=== PATIENT | male | born 1955 | race Caucasian/White ===

== ENCOUNTER 2019-08-05 07:59 | Inpatient (IN) ==
[2019-08-05] MEDS ORDERED: ZOFRAN IV ONE (08:29)
[2019-08-05] MEDS ORDERED: SODIUM CHLORIDE 0.9% INJ ONE (08:29)
[2019-08-05] MEDS ORDERED: PROTONIX IV ONE (08:29)
--- NOTE | 2019-08-05 08:35 | PROVIDER DOCUMENTATION ---
HPI-Abdominal Pain/GI Problem - General Stated Complaint: POSS GI BLEED Time Seen by Provider: 08/05/19 08:21 Source: patient, old records Allergies/Adverse Reactions: Patient Allergies Allergy/AdvReac Type Severity Reaction Status Date / Time No Known Allergies Allergy Verified 08/05/19 08:39 Home Medications: Home Medication List Medication Instructions Recorded Confirmed Last Taken Type Atenolol 50 mg PO DAILY 08/05/19 08/05/19 Unknown History Clonazepam [Klonopin] 1 mg PO DIRECTED 08/05/19 08/05/19 Unknown History Lisinopril 10 mg PO DAILY 08/05/19 08/05/19 Unknown History Mirtazapine [Remeron] 30 mg PO DAILY 08/05/19 08/05/19 Unknown History Prazosin [Minipress] 4 mg PO QHS 08/05/19 08/05/19 Unknown History - History of Present Illness-ABD Nature of Presenting Problems: pt presents w/ melena becoming maroon h'chezia for 2 days. states had febrile illness over the recent weekend, took Tylenol and ASA, otherwise denies NSAIDs. known to have fattly liver s/p rhys'x ([facility]). drinks 5-6 beers q day. states vomited "2 teaspoons" of BRB 10 yrs ago, no MD hudson, resolved spontaneously. no prior hx EGD. had normal colonoscopy last year. cc: abd cramping at present, denies CP/dyspnea/syncope. PMHx HBP on 3 Rx, and Clonazepam for "nerves," hs Remeron. Review of Systems - Adult - REVIEW OF SYSTEMS - ADULT Constitutional: reports: fever Eyes: reports: no symptoms reported Ears, Nose, Mouth & Throat: reports: no symptoms reported Cardiovascular: reports: no symptoms reported Respiratory: reports: no symptoms reported Gastrointestinal: reports: see HPI, abdominal pain, rectal bleeding Genitourinary: reports: no symptoms reported Musculoskeletal: reports: no symptoms reported Integumentary: reports: no symptoms reported Neurological: reports: no symptoms reported Psychiatric: reports: no symptoms reported Endocrine: reports: no symptoms reported Hematologic/Lymphatic: reports: no symptoms reported Allergic/Immunologic: reports: no symptoms reported All Other Systems: Reviewed and Negative Past History - Adult - PAST MEDICAL HISTORY-ADULT Review of Records: reports: Old Records Reviewed Cardiovascular: reports: HTN Gastrointestinal: reports: GI bleed. denies: ulcer Physical Exam-General - PHYSICAL EXAM-ADULT Initial Vital Signs Reviewed: Yes - CONSTITUTIONAL General Appearance: alert, no apparent distress. negative: obese, lethargic, slow to respond - EYES Eyes: pink conjunctivae. negative: scleral icterus - HEAD, EARS, NOSE, MOUTH & THROAT HENMT: normocephalic/atraumatic, moist mucous membranes - NECK Neck: full range of motion, supple - RESPIRATORY Respiratory: normal breath sounds - CARDIOVASCULAR Cardiovascular: normal peripheral pulses, regular rate, rhythm - GASTROINTESTINAL (ABDOMEN) Abdominal Exam: soft, no organomegaly. negative: abdominal bruit, guarding, rigid, rebound - GENITOURINARY Male Genitalia: deferred Rectal Exam: deferred - LYMPHATIC Lymphatic: no adenopathy - MUSCULOSKELETAL Back Exam: no CVA tenderness Extremity: normal range of motion Peripheral Pulses: radial (R): 2+, radial (L): 2+ - SKIN Integumentary: normal color, normal turgor, warm/dry. 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 II-XII nml as tested, grossly normal - PSYCHIATRIC Psych/Mental Status: normal mood/affect, normal thought content Progress - PLAN OF CARE/RESULTS Progress/Plan/Lab Results: Orders Category Date Time Status CHEST-1 VIEW [RAD] Stat Exams 08/05/19 08:28 Ordered ALCOHOL BLOOD Stat Lab 08/05/19 08:28 Uncollected BLOOD CULTURE [BLDCUL] Stat Lab 08/05/19 08:28 Uncollected CBC WITH ELECTRONIC DIFF [HEME] Stat Lab 08/05/19 08:28 Uncollected COMPREHENSIVE METABOLIC PANEL [CHEM] Stat Lab 08/05/19 08:28 Uncollected INFLUENZA SCREEN A/B Stat Lab 08/05/19 08:28 Uncollected MAGNESIUM [CHEM] Stat Lab 08/05/19 08:28 Uncollected OCCULT BLOOD NON-FECES Stat Lab 08/05/19 08:28 Uncollected PROTIME WITH INR [COAG] Stat Lab 08/05/19 08:28 Uncollected PTT [COAG] Stat Lab 08/05/19 08:28 Uncollected TYPE & SCREEN [BBK] Stat Lab 08/05/19 08:28 Uncollected 0.9% Sodium Chloride Inj [Ns] 1,000 ml Med 08/05/19 08:30 Ordered IV 125 mls/hr Ondansetron [Zofran] Med 08/05/19 08:29 Once 4 mg IV NOW ONE Pantoprazole [Protonix] Med 08/05/19 08:29 Once 40 mg IV NOW ONE Sodium Chloride 0.9% Med 08/05/19 08:29 Once 10 ml INJ NOW ONE GI Bleed (possible) Stat Oth 08/05/19 08:27 Ordered Result Diagrams: 08/05/19 08:29 08/05/19 08:29 - REASSESSMENT Reassessment #1 Time Reassessed: 10:55 Status: unchanged (Hb and hemodynamics stable. BUN elev likely due to GIH. will discuss with hospitalist) - CONSULTS/PCP/HOSPITALIST Notification Consult Disposition: Admit Departure - Departure Date of Disposition Decision: 08/05/19 Time of Disposition Decision: 11:14 DIAGNOSIS: Upper gastrointestinal bleed Disposition: ADMITTED INPATIENT 09 Certified Medical Emergency: Emergent Condition: Serious Referrals and Follow-Ups: None,PCP [Primary Care Provider] - - Critical Care Note This patient required my direct & personal management of CC.: No Attestation - Physician/ KIYA Attestation The physician spent face to face time with patient:: Yes Advanced Practice Provider documentation review:: Supervising physician onsite and consulted in the evaluation and care of this patient. The physician did have a face to face encounter with the patient.
[2019-08-05] MEDS: NS 1,000 ML IV SCH ×2 (09:01→16:44)
--- NOTE | 2019-08-05 09:10 | Diag Imaging Result Doc PS360 ---
EXAM: CHEST-1 VIEW HISTORY: fever, cough TECHNIQUE: Single view COMPARISON: None. FINDINGS: The lungs are well expanded. The heart is not enlarged. The vessels are not distended. There are no infiltrates. No effusion identified. IMPRESSION: No pneumonia Electronically signed by Abdifatah Nice 08/05/2019 9:08 AM
[2019-08-05 09:20] LABS: BASO# 0.02 X1000 (0.0-0.2); BASO% 0.2 % (0.0-0.8); HEMATOCRIT 42.3 % (42.0-52.0); HEMOGLOBIN 13.9 g/dL (14.0-18.0); IMM GRAN# 0.03 X1000 (0.0-0.04); IMM GRAN% 0.4 % (0.0-0.5); LYMPH# 1.45 X1000 (1.2-3.4); LYMPH% 17.3 % (20.5-51.1); MCH 29.9 PG (27-31); MCHC 32.9 g/dL (33-37); MONO# 0.55 X1000 (0.11-0.59); MONO% 6.6 % (1.7-9.3); MPV 12.6 FL (7.4-10.4); NEUT# 6.33 X1000 (1.4-6.5); NEUT% 75.5 % (42.2-75.2); PLT 58 X1000 (130-400); RBC 4.65 XMIL (4.7-6.1); RDW 15.3 % (11.5-14.5); WBC 8.38 X1000 (4.8-10.8)
[2019-08-05 09:29] LABS: AGAP 13; ALB/GLOB RATIO 0.9; ALBUMIN 3.3 g/dL (3.5-5.0); ALKALINE PHOSPHATASE 82 U/L (32-122); BUN 39 mg/dL (8-22); CALCIUM 8.6 mg/dL (8.8-10.2); CHLORIDE 101 mmol/L (98-107); COSMO 287; CREATININE 1.1 mg/dL (0.7-1.2); ESTIMATED GFR > 60; GLUCOSE 103 mg/dL (70-104); GOT 112 U/L (10-34); GPT 52 U/L (10-44); MAGNESIUM 1.8 mg/dL (1.5-2.7); POTASSIUM 3.2 mmol/L (3.5-5.1); SODIUM 139 mmol/L (136-145); TCO2 25 mmol/L (25-35); TOTAL BILIRUBIN 0.58 mg/dL (0.20-1.00); TOTAL PROTEIN 7.1 g/dL (6.3-8.3)
[2019-08-05 09:30] LABS: INR 1.06; PROTIME 13.9 Seconds (11.0-16.0)
[2019-08-05 09:31] LABS: PTT 32.5 Seconds (22.3-41.8)
--- NOTE | 2019-08-05 11:34 | Diag Imaging Result Doc PS360 ---
EXAM: ABDOMEN FLAT/UPRIGHT INDICATION: GI bleed TECHNIQUE: 2 views COMPARISON: None. FINDINGS: There are nonspecific bowel gas and stool patterns. There is no obstructive bowel pattern. There is no evidence of large volume free abdominal gas. IMPRESSION: Nonspecific abdomen. Electronically signed by Santana Powell 08/05/2019 11:32 AM
[2019-08-05] MEDS ORDERED: ZOFRAN IV PRN (12:57)
[2019-08-05] MEDS ORDERED: POTASSIUM CHLORIDE 40 MEQ/SWI 40 MEQ/100 ML IVPB IV ONE (13:07)
[2019-08-05] MEDS: NICODERM PATCH TD SCH (14:02)
[2019-08-05 14:36] LABS: HEMATOCRIT 39.5 % (42.0-52.0); HEMOGLOBIN 13.2 g/dL (14.0-18.0)
--- NOTE | 2019-08-05 14:47 | HISTORY AND PHYSICAL ---
PRIMARY CARE PHYSICIAN: Dr. Nathalia Araujo at the [facility] in [place]. CHIEF COMPLAINT: GI bleed. HISTORY OF PRESENT ILLNESS: Mr. Pineda is a 63-year-old, male with past medical history of hypertension, COPD, occasional hemorrhoids, general anxiety disorder and insomnia. The patient does present to the ER today with complaints of initial black-colored stools that eventually turned red in color for the past 2 days. The patient states that approximately 5 days ago the patient started having flu-like symptoms where he was having fever with chills. The patient started taking aspirin because he was told he could not take Tylenol because he has fatty liver disease. The patient has been taking aspirin daily. The patient has had a cough with fever and chills, dizziness. The patient has had some congestion with light green sputum production, some dyspnea. He has had nausea with vomiting. However, he has not vomited in the last 3 days. The patient does deny any weight change, vision change, neck pain, stiffness, excessive thirst, excessive urination, chest pain, palpitations, orthopnea, PND, hematocrit dysphagia, hemoptysis, constipation, dysuria, hematuria, muscle pain, syncope, or any other pertinent symptoms at this time. REVIEW OF SYSTEMS: A 10 point review of systems has been obtained. All are negative except what is stated above in HPI. PAST MEDICAL HISTORY: 1. Hypertension. 2. Chronic obstructive pulmonary disease. 3. Hemorrhoids. 4. General anxiety disorder. 5. Insomnia. 6. Hepatic steatosis. PAST SURGICAL HISTORY: 1. Left mandible surgery. 2. Multiple cysts removed as a child. 3. Inguinal hernia repair. 4. Artificial testicle implant at the age of 18. FAMILY HISTORY: Mother from ovarian cancer. Father from aortic aneurysm. SOCIAL HISTORY: Patient does live alone. He is retired. He states he smokes a half pack of cigarettes per day. He does drink 4 to 5 beers a day or 4 to 5 bourbon and Cokes a day. He does smoke occasional marijuana about once a month. ALLERGIES: No known drug allergies. HOME MEDICATIONS: 1. Clonazepam 1 mg p.o. as directed. 2. Remeron 330 mg p.o. daily. 3. Minipress 4 mg p.o. at bedtime. 4. Atenolol 50 mg p.o. daily. 5. Lisinopril 10 mg p.o. daily. PHYSICAL EXAMINATION: VITAL SIGNS: Temperature 97.9 degrees, pulse rate 76, respiratory rate 19, blood pressure 107/61, O2 saturation 97% on room air. GENERAL: This is a 63-year-old, male who is lying in the ER stretcher. He is well nourished and well developed. He is in no acute distress. HEENT: Atraumatic, normocephalic. Pupils equal, round, reactive to light. Mucous membranes are moist. NECK: Supple. No lymphadenopathy. Trachea is midline. No JVD. No thyromegaly. No bruits. CARDIOVASCULAR: Regular rate and rhythm. No murmurs, gallops, or rubs appreciated. RESPIRATORY: Lung sounds clear. Equal chest excursion. Respirations nonlabored. No accessory muscle usage. GI: Abdomen soft, nontender, nondistended. Bowel sounds present x4. : No suprapubic tenderness noted. The patient is voiding without difficulty. NEUROLOGIC: Patient is awake, alert, oriented, able to follow all commands appropriately. MUSCULOSKELETAL: Full distal strength noted. No abnormalities, no deformities. EXTREMITIES: No clubbing, no cyanosis, no edema. DP and PT pulses are present and palpable. SKIN: Warm, dry, intact. No rashes. No bruises. No diaphoresis. LABS AND DIAGNOSTICS: White blood cell count 8.38, hemoglobin 13.9, hematocrit 42.3, platelet count 58,000. PT is 13.9, INR is 1.06. Sodium 139, potassium 3.2, BUN is 39, creatinine 1.1, glucose is 103, calcium is 8.6, magnesium is 1.8, total bilirubin is 0.58, AST is 112, ALT is 52. Toxicology: Alcohol level is 0. Abdominal x-ray shows nonspecific abdomen. Chest x-ray shows no pneumonia. ASSESSMENT AND PLAN: 1. Gastrointestinal bleed. We are going to admit this patient to the medical floor. We will consult Gastroenterology. Dr. Morris is on-call. We will place this patient on bucket pusher. We will keep this patient NPO at this present time and await gastroenterology consultation. We appreciate their recommendations. I placed this patient on supplemental O2. We will repeat a hemoglobin and hematocrit q.6 hours. Provide this patient with IV fluid hydration. Provide this patient with Protonix 40 mg IV q.12 hours. By this patient anti medics of Zofran 4 mg IV q.4 hours. I will repeat labs in the morning. 2. Hypokalemia. I will replace his potassium with KCl rider 40 mEq and repeat potassium level in the morning. 3. Thrombocytopenia. The patient does state he has hepatic steatosis. We have consulted gastroenterology. 4. History of hypertension. The patient's blood pressure is stable at this time. We will resume blood pressure medications when needed. 5. General anxiety disorder. I have started this patient on Ativan 1 mg IV q.4 hours p.r.n. for withdrawals and agitation. 6. History of alcohol abuse. I have provided this patient with a daily banana bag and p.r.n. Ativan for possible withdrawals. 7. History of chronic obstructive pulmonary disease. I have placed this patient on DuoNeb q. 4 hours, supplemental O2. 8. Tobacco dependency. I provided this patient with cessation information and nicotine patch. Dictated by GAYATRI Meade for Mario Johnson MD cc: MD Nathalia Donohue
[2019-08-05] MEDS: M.V.I.-12 10 ML, FOLIC ACID 1 MG, MAGNESIUM SULFATE 1 GM, THIAMINE 100 MG in NS 1,000 ML IV SCH (14:55)
[2019-08-05] MEDS ORDERED: ROCEPHIN 1 GM in NS 50 ML IV ONE (15:10)
[2019-08-05] MEDS: DUONEB (A & A) INH SCH ×2 (15:20→21:21)
[2019-08-05] MEDS ORDERED: VALIUM IV ONE (16:38)
[2019-08-05] MEDS: ATIVAN IV PRN (16:43)
[2019-08-05] MEDS: POTASSIUM CHLORIDE 20 MEQ/SWI 20 MEQ/100 ML IVPB IV SCH ×2 (18:13→21:08)
--- NOTE | 2019-08-05 19:04 | HISTORY AND PHYSICAL ---
ADDENDUM: Mr. Pineda is a 63-year-old male who got admitted today because of dark stool. Mr. Pineda has longstanding alcohol use and abuse. He said he takes about 4 to 5 beers and also 3 to 4 shots of whiskey on a daily basis. He has been doing this since he was age 13. OBJECTIVE: Vital signs: Current vitals: Blood pressure is 106/71, pulse of 78, respirations are 18, temperature 98 degrees. Patient is saturating 95%. General: Mr. Pineda is a 63-year-old gentleman. He is in bed. He does not seem to be in any distress. HEENT: Mucosa is pink and moist. Neck: Supple. Chest: Clear to auscultation. No crepitations. No rhonchi. GI: Abdomen is soft. It is slightly distended, but nontender. Bowel sounds present. ROCKET SCIENTIST: Patient is awake, alert, oriented. He has residual tremors. He looks very anxious and fidgety in the bed. LABORATORY DATA: Has been reviewed. Hemoglobin repeat is 13.2. Coagulation panel is normal. Chemistry is also reviewed. Potassium is slightly low. Albumin is 3.3. ASSESSMENT: 1. Melenic stool, concerning for gastrointestinal bleed. The patient has been evaluated by GI. Pending esophagogastroduodenoscopy hopefully tomorrow. 2. Thrombocytopenia, most likely from alcohol use and abuse. 3. Alcohol use. Patient is currently showing active signs of withdrawal. We are going to give him 10 mg of intravenous Valium and use Ativan as needed. He is currently n.p.o. 4. Hypokalemia. Will be replaced. 5. Tobacco use and abuse. Patient has been counseled. In general, I think Mr. Pineda is a severe alcohol user, showing signs of active withdrawal. We are going to continue with the as needed Ativan. We will give him a long-acting benzodiazepine. He has been started on proton pump inhibitors and antibiotics, and will be pending further recommendations from GI. cc: Mario Johnson MD
--- NOTE | 2019-08-05 19:13 | GASTROENTEROLOGY CONSULTATION ---
DATE: 08/05/2019 REASON FOR CONSULTATION: Suspect upper GI bleed. HISTORY OF PRESENT ILLNESS: Mr. 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 The patient reports developing some upper respiratory symptoms including cough, congestion, subjective fever and some lower abdominal cramping. He has been taking some aspirin. He said he has taken about 8 full dose aspirin over the last 5 days for pain. He was tested for flu, apparently which was negative. He denies any a hematemesis. He does say he has some scant red blood in his stool as well. His last colonoscopy was normal at the [facility] about a year ago. No other NSAIDs. No weight loss. Some dizziness. No chest pain or shortness of breath at this time. He drinks around 5 to 6 beers daily. He has been drinking pretty much all his life. His last drink was about 2 days ago. He says that he was hospitalized several years ago with DTs. He is otherwise not on any blood thinners. REVIEW OF SYSTEMS: As per HPI, otherwise 12 point review of systems negative. PAST MEDICAL HISTORY: As per HPI. PAST SURGICAL HISTORY: He has had a left mandible surgery and cholecystectomy, inguinal hernia repair, artificial testicle implant. FAMILY HISTORY: No family history of GI malignancies. Mother of ovarian cancer. SOCIAL HISTORY: He smokes about 2 half to 3/4 of pack daily. He drinks he says about 5 to 6 beers per day, although he also drinks liquor as well apparently. He also smokes marijuana occasionally. HOME MEDICATIONS: Include clonazepam, Remeron, Minipress, atenolol, lisinopril. He is not on PPI. ALLERGIES: No known drug allergies. PHYSICAL EXAMINATION: Vital Signs: Temperature is 98 degrees, heart rate 52, blood pressure 106/71, O2 saturation 95% on room air. General: The patient is awake, alert, oriented, in no acute distress. He appears mildly tremulous. HEENT: Sclerae anicteric. Moist mucous membranes. Extraocular motor intact. Neck: Supple. No JVD or lymphadenopathy. Cardiac: Regular rate and rhythm. No murmurs, rubs, or gallops. Lungs: Clear to auscultation bilaterally. Abdomen: He has a small umbilical hernia. Surgical scars noted. Nondistended. Soft and nontender. Bowel sounds are present. Extremities: No clubbing, cyanosis, or edema. Neurologic: Cranial nerves 2- 12 grossly intact. No asterixis. LABS: White count of 8.3, hemoglobin 13.2, platelets of 58,000, INR of 1.06. Sodium 139, potassium 3.2, chloride of 101, bicarb 25, BUN 39, creatinine 1.1, glucose of 103. LFTs: T bilirubin of 0.58, AST of 112, ALT of 52, alkaline phosphatase 82, total protein 7.1, albumin of 3.3. Alcohol level is negative. IMAGING: Chest x-ray is unremarkable. KUB is unremarkable. ASSESSMENT AND PLAN: Mr. Dank Pineda is a 63-year-old alcoholic with probable decompensated alcohol cirrhosis, chronic obstructive pulmonary disease, who presents with the recent flu-like symptoms and melenic stools with some lower abdominal cramping. He has been taking some aspirin recently, which could be contributing to his upper gastrointestinal bleed. Labs are notable for a normal hemoglobin, thrombocytopenia and AST, ALT elevation pattern consistent with alcoholic liver disease. His coags are normal. It does not appear that he is having a brisk upper gastrointestinal bleed. He has not had an esophagogastroduodenoscopy in the past. His last colonoscopy was normal a year ago. He does report some history of delirium tremens in the past and appears mildly tremulous right now. I recommend that we continue him on proton pump inhibitor IV b.i.d. Start him on ceftriaxone 1 g every 24 hours for spontaneous bacterial peritonitis prophylaxis. Avoid any blood thinners. Clear liquid diet for now. NPO after midnight for diagnostic esophagogastroduodenoscopy tomorrow morning. I would watch closely for delirium tremens and keep him on CIWA. I have counseled the patient on alcohol cessation and avoidance of nonsteroidal anti-inflammatories. Other issues include tobacco abuse, anxiety disorder, hypertension, hypokalemia, probable volume depletion. He is on IV fluids with banana bag and folate and vitamin. # UGIB # Compensated ETOH cirrhosis # Thrombocytopenia # COPD # Acute blood loss anemia # Tobacco abuse # Upper respiratory infection Thank you for this consult. We will follow with you. Please call with any questions or concerns. [facility]
[2019-08-05 20:42] LABS: HEMOGLOBIN 12.3 g/dL (14.0-18.0)
[2019-08-05] MEDS: PROTONIX IV SCH (21:08)
[2019-08-05] MEDS ORDERED: VALIUM ONE (21:50)
[2019-08-06] MEDS: NS 1,000 ML IV SCH ×3 (02:14→15:17)
[2019-08-06 02:54] LABS: HEMATOCRIT 35.4 % (42.0-52.0); HEMOGLOBIN 11.7 g/dL (14.0-18.0)
[2019-08-06] MEDS: DUONEB (A & A) INH SCH ×4 (03:10→21:50)
[2019-08-06] MEDS ORDERED: DIPRIVAN 1% ONE (06:53)
[2019-08-06 07:44] LABS: HEMATOCRIT 33.7 % (42.0-52.0); HEMOGLOBIN 11.3 g/dL (14.0-18.0)
[2019-08-06 07:46] LABS: BASO# 0.01 X1000 (0.0-0.2); BASO% 0.2 % (0.0-0.8); HEMATOCRIT 33.8 % (42.0-52.0); LYMPH# 1.12 X1000 (1.2-3.4); LYMPH% 21.2 % (20.5-51.1); MCHC 32.5 g/dL (33-37); MCV 92.1 FL (81-99); MONO# 0.54 X1000 (0.11-0.59); MONO% 10.2 % (1.7-9.3); MPV 12.5 FL (7.4-10.4); NEUT# 3.61 X1000 (1.4-6.5); NEUT% 68.4 % (42.2-75.2); PLT 46 X1000 (130-400); RBC 3.67 XMIL (4.7-6.1); WBC 5.28 X1000 (4.8-10.8)
[2019-08-06 08:03] LABS: AGAP 12; ALB/GLOB RATIO 0.9; ALBUMIN 2.7 g/dL (3.5-5.0); ALKALINE PHOSPHATASE 61 U/L (32-122); BUN 22 mg/dL (8-22); CALCIUM 7.4 mg/dL (8.8-10.2); CHLORIDE 111 mmol/L (98-107); COSMO 286; CREATININE 0.7 mg/dL (0.7-1.2); ESTIMATED GFR > 60; GLUCOSE 99 mg/dL (70-104); GOT 86 U/L (10-34); GPT 36 U/L (10-44); POTASSIUM 3.3 mmol/L (3.5-5.1); SODIUM 142 mmol/L (136-145); TCO2 19 mmol/L (25-35); TOTAL BILIRUBIN 0.59 mg/dL (0.20-1.00); TOTAL PROTEIN 5.6 g/dL (6.3-8.3)
--- NOTE | 2019-08-06 09:42 | ENDOSCOPY OPERATIVE NOTE ---
[facility] ENDOSCOPY OPERATIVE NOTE , EGD PROCEDURE REPORT EXAM DATE: 08/06/2019 PATIENT NAME: Dank Pineda MR#: [id number] BIRTHDATE: 1955 ATTENDING: Dm Morris MD STATUS: inpatient COMMUNITY MIDWIFE: INDICATIONS: The patient is a 63 yr old male here for an EGD due to melena, Compensated ETOH cirrhos is, and anemia. Patient recently taking copious aspirin. PROCEDURE PERFORMED: EGD w/ biopsy MEDICATIONS: Per Anesthesia ESTIMATED BLOOD LOSS: None CONSENT: The patient understands the risks and benefits of the procedure and understands that these r isks include, but are not limited to: sedation, allergic reaction, infection, perforation and/or bleeding. Alternative means of evaluation and treatment include, among others: physical exam, x-rays, and/or surgical intervention. The patient elects to proceed with this endoscopic procedure. DESCRIPTION OF PROCEDURE: During pre-op preparation period all mechanical and medical equipment was c hecked for proper function. Hand hygiene and appropriate measures for infection prevention was taken. After the risks, benefits and alternatives of the procedure were thoroughly explained, Informed consent was verified, confirmed and timeout was successfully executed by the treatment team. The patient was anesthetized with topical anesthesia and the [id number] ([id number]) endoscope was introduced through the mouth and advanced to the second portion of the duoden um. Retroflexion was performed in the stomach and revealed no abnormalities. The gastroscope was then slowly withdraw n and removed. The patient's toleration of the procedure was good. ESOPHAGUS: Reflux esophagitis was found in the lower third of the esophagus. Esophagitis was LA Clas s C: Mucosal breaks continuous between > 2 mucosal folds, but involving less than 75% of the esophageal circumference. N o esophageal varices. Z-line located at 40cm from incisors. STOMACH: Mild portal hypertensive gastropathy was found in the entire examined stomach. Mild gastri tis (inflammation) was found in the gastric antrum. A biopsy was performed using cold forceps. Sample sent for histolo gy. Multiple non-bleeding and clean-based ulcers ranging between 3-7mm in size were found in the gastric antrum. No gastric varices. DUODENUM: Moderate duodenal inflammation was found in the duodenal bulb and 2nd part duodenum. Mult iple clean-based and and irregular shaped ulcers with adherent clots were found in the duodenal bulb and 2nd part duod enum. Clots were removed by suction. There was diffuse mild oozing of blood, but no discrete treatable lesions found. ADVERSE EVENTS: There were no complications. IMPRESSIONS: ESOPHAGUS: Reflux esophagitis was found in the lower third of the esophagus. Esophagitis was LA Clas s C: Mucosal breaks continuous between > 2 mucosal folds, but involving less than 75% of the esophageal circumference. N o esophageal varices. Z-line located at 40cm from incisors. STOMACH: Mild portal hypertensive gastropathy was found in the entire examined stomach. Mild gastri tis (inflammation) was found in the gastric antrum. A biopsy was performed using cold forceps. Sample sent for histolo gy. Multiple non-bleeding and clean-based ulcers ranging between 3-7mm in size were found in the gastric antrum. No gastric varices. DUODENUM: Moderate duodenal inflammation was found in the duodenal bulb and 2nd part duodenum. Mult iple clean-based and and irregular shaped ulcers with adherent clots were found in the duodenal bulb and 2nd part duod enum. Clots were removed by suction. There was diffuse mild oozing of blood, but no discrete treatable lesions found. RECOMMENDATIONS: Clear liquid diet Continue IV PPI BID Continue ceftriaxone daily for total of 5 days of antibiotics for SBP ppx. Avoid blood thinners and NSAIDs Continue to trend H/H daily, transfuse prn for goal hgb 7-8 Await biopsy results Will follow with you. Please call with questions REPEAT EXAM: Return in 3 months for EGD. Dm Morris MD eSigned: Dm Morris MD 08/06/2019 9:42 AM CC: CPT CODES: 14428 Upper gastrointestinal endoscopy including esophagus, stomach, and either the du odenum and/or jejunum as appropriate; with biopsy, single or multiple ICD CODES: 578.1 Blood in stool 285.9 anemia,unspecified The ICD and CPT codes recommended by this software are interpretations from the data that the [facility] staff has captured with the software. The verification of the translation of this report to the ICD and CPT co immanuel and modifiers is the sole responsibility of the health care institution and practicing physician where this report was generated. [employer] will not be held responsible for the validity of the ICD and CPT codes i ncluded on this report. AMA assumes no liability for data contained or not contained herein. CPT is a registered tra demark of the [employer]. PATIENT NAME: Dank Pineda MR#: [id number]
[2019-08-06] MEDS: NICODERM PATCH TD SCH (10:05)
[2019-08-06] MEDS: PROTONIX IV SCH ×2 (10:05→19:47)
[2019-08-06] MEDS: ATIVAN IV PRN ×3 (10:08→19:47)
[2019-08-06] MEDS: M.V.I.-12 10 ML, FOLIC ACID 1 MG, MAGNESIUM SULFATE 1 GM, THIAMINE 100 MG in NS 1,000 ML IV SCH (10:09)
--- NOTE | 2019-08-06 17:52 | Diag Imaging Result Doc PS360 ---
EXAM: US ABDOMEN-COMPLETE - 08/06/2019 HISTORY: suspected cirrhosis of liver TECHNIQUE: Ultrasound abdomen COMPARISON: None. FINDINGS: The gallbladder surgically absent. The common bile duct is normal caliber at 4 mm. The pancreas is largely obscured by bowel gas artifacts. The liver appears diffusely echodense suggesting fatty infiltration. There is no focal liver lesion identified. Blood flow direction in the portal vein is ambiguous. The spleen is unremarkable. There is no ascites seen. There are no abnormalities in bilateral kidneys identified. The aorta is largely obscured by bowel gas artifacts. The visualized IVC is unremarkable. IMPRESSION: Status post cholecystectomy. Normal caliber common bile duct at 4 mm. The pancreas is largely obscured by artifacts. Apparent fatty infiltration of liver. No evidence of focal liver lesion. Unclear flow direction in the portal vein. No evidence of ascites. Electronically signed by Mike Sainz 08/06/2019 5:50 PM
--- NOTE | 2019-08-06 18:26 | PROGRESS NOTE ---
DATE: 08/06/2019 SUBJECTIVE: Today Mr. Pineda refers to be doing well. He underwent EGD early on this morning. OBJECTIVE: Vital signs: Blood pressure is 154/79, pulse of 122, temperature is 98 degrees. Patient is saturating to 97%. Respirations 20. General: Mr. Pineda is a 63-year-old elderly male. He is in bed no distress. Mucosa is pink and moist. Anicteric. Acyanotic. Neck: Supple. Chest: Good air entry bilaterally. There were no crepitations, no rhonchi. Cardiovascular: Regular rate and rhythm, slightly tachycardic. Abdomen: Soft, nontender. Bowel sounds present. Extremities: No pedal edema. COORDINATE MEASURING MACHINE TECHNICIAN: Patient looks less anxious, but still has a residual tremors. LABORATORY DATA: WBC is 5.28, hemoglobin 11.0, platelet count of 46,000. Chemistry is also reviewed, potassium is 3.3. So far blood cultures have been unremarkable. Report from the EGD shows mild portal hypertensive gastropathy in the stomach. Multiple nonbleeding and clean based ulcers in the stomach. There was also moderate inflammation in the duodenum, clean base and irregular-shaped ulcers with adherent clot in the duodenal bulb and 2nd part of the duodenum. ASSESSMENT: 1. Melena secondary to gastrointestinal bleed most likely from duodenal ulcer. 2. Multiple peptic ulcers some with a with a duodenal bleeding ulcer. 3. Thrombocytopenia. 4. Alcohol use and abuse. 5. Hypokalemia. Will continue to replace. 6. Tobacco use and abuse. 7. Alcohol withdrawal symptoms. We will continue with CIWA protocol. 8. Portal hypertensive gastropathy concerning for cirrhosis of the liver. We will get an ultrasound of the liver to check on the anatomy. cc: Mario Johnson MD
[2019-08-06] MEDS: LIBRIUM PO SCH ×2 (19:48→21:39)
[2019-08-06] MEDS: NEURONTIN PO SCH ×2 (19:48→21:39)
[2019-08-07] MEDS: DUONEB (A & A) INH SCH ×4 (03:45→22:02)
[2019-08-07] MEDS: NS 1,000 ML IV SCH (05:22)
[2019-08-07] MEDS: ATIVAN IV PRN ×4 (05:26→19:47)
[2019-08-07 07:28] LABS: HEMATOCRIT 29.6 % (42.0-52.0); HEMOGLOBIN 9.6 g/dL (14.0-18.0); MCH 30.7 PG (27-31); MCHC 32.4 g/dL (33-37); MCV 94.6 FL (81-99); MPV 11.4 FL (7.4-10.4); RBC 3.13 XMIL (4.7-6.1); WBC 4.84 X1000 (4.8-10.8)
[2019-08-07 07:31] LABS: INR 1.16
[2019-08-07 07:57] LABS: AGAP 6; ALB/GLOB RATIO 0.8; ALBUMIN 2.5 g/dL (3.5-5.0); ALKALINE PHOSPHATASE 56 U/L (32-122); BUN 9 mg/dL (8-22); CALCIUM 7.6 mg/dL (8.8-10.2); CHLORIDE 110 mmol/L (98-107); COSMO 277; CREATININE 0.5 mg/dL (0.7-1.2); ESTIMATED GFR > 60; GLUCOSE 105 mg/dL (70-104); GOT 80 U/L (10-34); GPT 34 U/L (10-44); POTASSIUM 3.1 mmol/L (3.5-5.1); SODIUM 139 mmol/L (136-145); TCO2 23 mmol/L (25-35); TOTAL BILIRUBIN 0.62 mg/dL (0.20-1.00); TOTAL PROTEIN 5.5 g/dL (6.3-8.3)
[2019-08-07] MEDS ORDERED: KLOR-CON PO ONE (08:34)
[2019-08-07] MEDS: NEURONTIN PO SCH ×3 (09:28→21:41)
[2019-08-07] MEDS: PROTONIX IV SCH ×2 (09:28→19:47)
[2019-08-07] MEDS: NICODERM PATCH TD SCH (09:29)
[2019-08-07] MEDS: VITAMIN B-1 PO SCH (09:29)
[2019-08-07] MEDS: THERA M PLUS PO SCH (09:29)
[2019-08-07] MEDS: LIBRIUM PO SCH ×3 (09:29→21:41)
[2019-08-07] MEDS: 1/2 NS + KCL 20 MEQ 1,000 ML IV SCH ×2 (09:42→21:31)
[2019-08-07 09:52] LABS: IRON SATURATION 10 %; TIBC 159 ug/dL; TOTAL IRON 16 ug/dL (53-167); UNBOUND IRON 143 ug/dL (112-346)
--- NOTE | 2019-08-07 12:04 | PROGRESS NOTE ---
DATE: 08/07/2019 SUBJECTIVE: This morning Mr. Pineda refers to be doing well. He continues to be visibly seen with residual tremors. Has not had any overt bleed. OBJECTIVE: Vital signs: Blood pressure is 136/79, pulse of 108, respirations 20, temperature is 99.6 degrees. The patient is saturating 93-96%on nasal cannula. General: Mr. Pineda is a 63-year- old, gentleman. He is in bed, in no distress. Head/Neck: Mucosa is pink and moist. Anicteric. Acyanotic. Neck is supple. Chest: Air entry was bilaterally reduced. A few rhonchi bilaterally in lower lobes. Cardiovascular: Regular rate and rhythm. No murmurs, no rubs, no gallops. GI: Abdomen is soft, nontender. Bowel sounds present. 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 He is awake and alert, oriented x3. Mild residual tremors. DATA: WBC 4.84, hemoglobin is 9.6, platelet count of 33,000. Chemistry is also reviewed, potassium is 3.1. The patient's current medications have all been reviewed. Chemistry shows potassium is 3.0, the rest of chemistry is unremarkable. AST is down to 80, ALT has normalized. ASSESSMENT: 1. Melena stool on presentation secondary to GI bleed, likely from a duodenal ulcer. 2. Multiple peptic ulcers with a duodenal bleeding ulcer found on EGD. 3. Thrombocytopenia, likely due to alcohol use. Number is getting worse. We are going to continue to monitor. The patient is not overtly bleeding now. 4. Alcohol use and abuse. Patient has been counseled. 5. Hypokalemia. We will continue to replace. 6. Alcohol withdrawal. The patient is on CIWA protocol. 7. Portal hypertensive gastropathy on EGD. 8. Fatty liver disease on ultrasound, most likely due to alcohol use and abuse. PLAN: So, for today we will continue with the patient's benzo therapy, avoiding medication with potential to drop any further the platelet count. We will check an iron studies, B12 and folate, and replace it accordingly and advance Mr. Vital's diet. cc: Mario Johnson MD
[2019-08-07] MEDS ORDERED: FOLIC ACID PO ONE (13:16)
[2019-08-08] MEDS: ATIVAN IV PRN ×4 (00:06→17:20)
[2019-08-08] MEDS: DUONEB (A & A) INH SCH ×4 (03:19→19:59)
[2019-08-08 07:56] LABS: HEMATOCRIT 32.7 % (42.0-52.0); HEMOGLOBIN 10.4 g/dL (14.0-18.0); MCH 29.7 PG (27-31); MCHC 31.8 g/dL (33-37); MCV 93.4 FL (81-99); MPV 11.7 FL (7.4-10.4); RBC 3.5 XMIL (4.7-6.1); RDW 14.8 % (11.5-14.5); WBC 5.4 X1000 (4.8-10.8)
[2019-08-08 08:28] LABS: AGAP 10; ALBUMIN 2.6 g/dL (3.5-5.0); BUN 8 mg/dL (8-22); CALCIUM 7.7 mg/dL (8.8-10.2); CHLORIDE 105 mmol/L (98-107); COSMO 272; CREATININE 0.6 mg/dL (0.7-1.2); ESTIMATED GFR > 60; GLUCOSE 91 mg/dL (70-104); PHOSPHORUS 1.4 mg/dL (2.7-4.5); POTASSIUM 3.6 mmol/L (3.5-5.1); SODIUM 137 mmol/L (136-145); TCO2 22 mmol/L (25-35)
[2019-08-08] MEDS ORDERED: POTASSIUM PHOSPHATE 40 MEQ in NS 250 ML IV ONE (09:12)
[2019-08-08] MEDS: FOLIC ACID PO SCH (09:23)
[2019-08-08] MEDS: LIBRIUM PO SCH ×2 (09:23→20:31)
[2019-08-08] MEDS: THERA M PLUS PO SCH (09:23)
[2019-08-08] MEDS: NEURONTIN PO SCH ×2 (09:23→20:31)
[2019-08-08] MEDS: SODIUM CHLORIDE 0.9% INJ SCH ×2 (09:23→20:31)
[2019-08-08] MEDS: VITAMIN B-1 PO SCH (09:23)
[2019-08-08] MEDS: NICODERM PATCH TD SCH (09:23)
[2019-08-08] MEDS: PROTONIX IV SCH ×2 (09:23→20:31)
[2019-08-08] MEDS: KLOR-CON PO SCH (09:24)
--- NOTE | 2019-08-08 11:44 | PROGRESS NOTE ---
DATE: 08/08/2019 SUBJECTIVE: I have seen and examined Mr. Pineda today. He refers to be doing well. Denies any new complaints. He said he has not walked yet, so we will get Physical Therapy to evaluate him. OBJECTIVE: Vital Signs: Blood pressure is 146/82, pulse of 108, respirations 18, temperature 98.6 degrees, the patient is saturating 93%. General: Mr. Pineda is a 63-year-old, elderly, gentleman. He is in bed. He does not seem to be in any distress. HEENT: Mucosa is pink and moist. Anicteric. Acyanotic. Neck: Supple. Chest: Good air entry bilaterally. Few rhonchi in the posterior lung tang. Cardiovascular: Regular rate and rhythm. No murmurs, no rubs, no gallops. GI: Abdomen is soft, nontender. Bowel sounds present. No hepatosplenomegaly. COMPENSATION PROGRAMS MANAGER: The patient is awake, alert, oriented, less anxious, has a mild tremor. The patient seems to be tolerating his diet. LABORATORY DATA: WBC is 5.50, hemoglobin is 10.4, platelet count of 40,000, which is slightly improved from 33 yesterday. Chemistry is also reviewed. The patient's phosphorus is 1.4. Folate is low at 8.6. ASSESSMENT: 1. Anemia secondary to gastrointestinal bleed. The patient is status post esophagogastroduodenoscopy, found a bleeding duodenal ulcer. 2. Multiple peptic ulcers with a duodenal bleed found on esophagogastroduodenoscopy. 3. Thrombocytopenia secondary to alcohol use. 4. Alcohol use and abuse prior to hospitalization. The patient has been counseled. 5. Electrolyte abnormality. Will continue to replace. 6. Alcohol withdrawal. Will continue with CIWA protocol. 7. Portal hypertensive gastropathy found on esophagogastroduodenoscopy. Noted. 8. Fatty liver disease on ultrasound secondary to alcohol use and abuse. The patient has been notified and counseled. 9. Folate deficiency. Will continue to replace. 10. Generalized weakness and deconditioning. We have consulted Physical Therapy. In general, I think Mr. Pineda is doing well. He does not seem to have any more ongoing gastrointestinal bleed. Will continue with the proton pump inhibitor. He is tolerating his gastrointestinal soft diet. We are going to continue replacing all his vitamin and mineral deficiencies. Get Physical Therapy to evaluate him today, and then make a decision if he can be discharged home or if he needs any inpatient rehab. cc: Mario Johnson MD
[2019-08-08] MEDS: 1/2 NS + KCL 20 MEQ 1,000 ML IV SCH (13:54)
[2019-08-08] MEDS: TYLENOL PO PRN (17:20)
[2019-08-09] MEDS: TYLENOL PO PRN ×3 (02:16→16:29)
[2019-08-09] MEDS: ATIVAN IV PRN ×5 (02:16→22:29)
[2019-08-09] MEDS: 1/2 NS + KCL 20 MEQ 1,000 ML IV SCH (02:16)
[2019-08-09] MEDS: DUONEB (A & A) INH SCH ×4 (03:33→20:15)
[2019-08-09 07:44] LABS: HEMATOCRIT 30.5 % (42.0-52.0); HEMOGLOBIN 9.9 g/dL (14.0-18.0); MCH 30.1 PG (27-31); MCHC 32.5 g/dL (33-37); MCV 92.7 FL (81-99); MPV 12.1 FL (7.4-10.4); RBC 3.29 XMIL (4.7-6.1); RDW 14.6 % (11.5-14.5); WBC 5.93 X1000 (4.8-10.8)
[2019-08-09 08:04] LABS: AGAP 11; ALBUMIN 2.5 g/dL (3.5-5.0); BUN 8 mg/dL (8-22); CALCIUM 7.8 mg/dL (8.8-10.2); CHLORIDE 104 mmol/L (98-107); COSMO 274; CREATININE 0.6 mg/dL (0.7-1.2); ESTIMATED GFR > 60; GLUCOSE 97 mg/dL (70-104); MAGNESIUM 1.6 mg/dL (1.5-2.7); PHOSPHORUS 2.5 mg/dL (2.7-4.5); POTASSIUM 3.8 mmol/L (3.5-5.1); SODIUM 138 mmol/L (136-145); TCO2 23 mmol/L (25-35)
[2019-08-09] MEDS: VITAMIN B-1 PO SCH (09:06)
[2019-08-09] MEDS: SODIUM CHLORIDE 0.9% INJ SCH ×2 (09:06→21:41)
[2019-08-09] MEDS: NEURONTIN PO SCH ×2 (09:06→21:44)
[2019-08-09] MEDS: NICODERM PATCH TD SCH (09:06)
[2019-08-09] MEDS: PROTONIX IV SCH ×2 (09:06→21:41)
[2019-08-09] MEDS: FOLIC ACID PO SCH (09:06)
[2019-08-09] MEDS: KLOR-CON PO SCH (09:06)
[2019-08-09] MEDS: THERA M PLUS PO SCH (09:09)
[2019-08-09] MEDS: LIBRIUM PO SCH ×2 (09:24→21:44)
[2019-08-09 09:40] LABS: URINE SOURCE VOIDED
--- NOTE | 2019-08-09 09:47 | Diag Imaging Result Doc PS360 ---
CHEST-1 VIEW - 08/09/2019 INDICATION: fever r/o pneumonia COMPARISON: 08/05/2019 FINDINGS: There are hazy infiltrates in the upper lobes bilaterally, right greater than left. Heart size is normal. No pneumothorax or large pleural effusion. IMPRESSION: Bilateral upper lobe infiltrates consistent with pneumonia. Electronically signed by Kvng Lancaster 08/09/2019 9:44 AM
[2019-08-09 09:58] LABS: BILIRUBIN URINE NEGATIVE (NEGATIVE); BLOOD URINE NEGATIVE (NEGATIVE); COLOR YELLOW; GLUCOSE URINE NEGATIVE (NEGATIVE); KETONE URINE 20 mg/dL (NEGATIVE); LEUKOCYTES URINE NEGATIVE (NEGATIVE); NITRITE URINE NEGATIVE (NEGATIVE); PH URINE 6.5; PROTEIN URINE NEGATIVE (NEGATIVE); SP GRAVITY URINE 1.017; TURBIDITY URINE CLEAR (CLEAR); UROBILINOGEN URINE 2 mg/dL (NORMAL)
--- NOTE | 2019-08-09 10:12 | GASTROENTEROLOGY PROGRESS NOTE ---
DATE: 08/09/2019 SUBJECTIVE: Mr. Pineda is a 63-year-old male resting in bed. The patient has denied any abdominal pain, nausea, vomiting, but he did mention that he does not have any appetite to eat his breakfast. The patient has denied having any bowel movements today. OBJECTIVE: Vital Signs: Temperature 97.4 degrees, pulse 91, respirations 18, blood pressure 139/85, oxygen saturation 89% on 2 L nasal cannula. General: He is alert, oriented x3, and in no acute distress. HEENT: Pale conjunctivae. No icterus. PERRL. Neck: Supple. Lungs: Clear to auscultation. Cardiovascular: The patient is tachycardic. Abdomen: Soft, nontender, nondistended. Active bowel sounds heard in all 4 quadrants. Extremities: No clubbing, no cyanosis, no edema. Pedal pulses 2+ present bilaterally. Neurologic: He is alert, oriented x3. LABS: WBCs are 5.93, RBC 3.29, hemoglobin 9.9, hematocrit is 30.5, platelet count is 57,000. Sodium 138, potassium 3.8, chloride 104, carbon dioxide 23, anion gap 11, BUN 8, creatinine 0.6, glucose 97, calcium 7.8, phosphorus 2.5, magnesium 1.6, albumin is 2.5. IMPRESSION AND PLAN: Duodenal ulcer Anemia Thrombocytopenia Alcohol abuse PLAN: Mr. Pineda is a 63-year-old male with a history of COPD. GI is following him for his upper GI bleed. The patient's hemoglobin and hematocrit currently are 9.9 and 30.5. He had an EGD done on 08/06 and it showed reflux esophagitis. The patient had mild portal hypertensive gastropathy, mild gastritis with gastric ulcers and duodenal inflammation with duodenal ulcers. The patient is currently on a GI soft diet but mentions not having any appetite. We will continue patient with PPIs twice a day. The patient is on a multivitamin for his anemia. He is receiving thiamine and folic acid. The patient has orders for the PT to work with him. We will continue to monitor the patient's H & H and follow the plan of care per PCP. This plan was discussed with Dr. Hebert. Please call us for any further questions or concerns. Dictated by GAYATRI Deal for Frank Hebert MD cc: Frank Hebert MD I have seen and examined the patient myself and I agree with the above plan of care. Please call us with any questions or concerns. EMILY
[2019-08-09 10:14] LABS: UR EPITHELIAL CELLS <10 /HPF (<10); URINE BACTERIA NEGATIVE /HPF; URINE RBC <10 /HPF (<10); URINE WBC <10 /HPF (<10)
[2019-08-09] MEDS ORDERED: VANCOMYCIN IV PER PHARMACY MISC SCH (10:30)
[2019-08-09 10:55] LABS: URINE CRYSTALS NONE SEEN
[2019-08-09] MEDS: MAXIPIME 2 GM/NS 2 GM/100 ML IVPB IV SCH ×2 (11:51→22:28)
--- NOTE | 2019-08-09 12:23 | PROGRESS NOTE ---
DATE: 08/09/2019 SUBJECTIVE: This morning, Mr. Pineda refers to feel very exhausted. He said he is not feeling good. He said he has been coughing, and that he also had fever yesterday. Early this morning, his attending nurse also expressed the concern that he has been febrile and has been quite hypoxemic. OBJECTIVE: Current Vital Signs: Blood pressure is 117/73, pulse of 108, respirations 18, temperature 98.6 degrees. The patient had a T-max of 101.3 degrees early this morning at 2:17. He also had some mild elevation in his temperature yesterday. He is saturating 91% on nasal cannula. General: Mr. Pineda is a 63-year-old, gentleman. He is in bed. He is not in any cardiopulmonary distress. HEENT: Mucosa is pink and moist. Anicteric. Acyanotic. Neck: Supple. Chest: Air entry is bilaterally reduced. There are a few rhonchi and crackles in the posterior lung tang. Cardiovascular: Regular rate and rhythm. No murmurs, no rubs, no gallops. GI: Abdomen is soft, nontender. Bowel sounds present. There is no hepatosplenomegaly. Extremities: No pedal edema. HEMATOLOGY NURSE EDUCATOR: The patient is awake, alert, oriented x3. No tremor observed this morning, and he is less anxious. IMAGING AND LABORATORY DATA: WBC is 5.93, hemoglobin is 9.9, platelet count of 57,000. Chemistry is also reviewed and is unremarkable. The patient's phosphorus is 2.5 this morning. Prealbumin is 4, and folate is also low. Flu testing early this morning has been negative. A chest x-ray shows bilateral upper lobe infiltrate, consistent with pneumonia. ASSESSMENT: 1. Anemia on presentation secondary to gastrointestinal bleed. The patient presented with melena. He underwent esophagogastroduodenoscopy. He was found to have a bleeding duodenal ulcer. This was treated endoscopically, and he is currently on proton pump inhibitor. Hemoglobin has been fairly stable. 2. Multiple gastroduodenal ulcers with duodenal bleeding ulcer found on esophagogastroduodenoscopy. 3. Thrombocytopenic secondary to alcohol use and abuse. The patient's platelet count seems to be improving. 4. Alcohol use and abuse prior to hospitalization. The patient has been counseled. 5. Alcohol withdrawal syndrome. Will continue with CIWA protocol. The patient does not seem to have any more shaking, and he looks less anxious. 6. Portal hypertensive gastropathy found on esophagogastroduodenoscopy. Noted. 7. Fatty liver disease on ultrasound. 8. Folate deficiency. 9. Generalized weakness and deconditioning. 10. Hospital-acquired pneumonia. Since yesterday, Mr. Pineda has been running a temperature. He is also slightly tachycardic. A chest x-ray this morning shows bilateral upper lobe infiltrates concerning for pneumonia. We have started him on cefepime and vancomycin. Blood cultures have been done, and we will follow up accordingly. 11. Acute hypoxemic respiratory failure secondary to bilateral pneumonia. The patient is on supplemental oxygen. In general, Mr. Pineda is doing fair. He got admitted mainly because of gastrointestinal bleed, underwent esophagogastroduodenoscopy with Dr. Morris on 08/06/2019, where he was found to have multiple gastric and duodenal ulcers. He was also found to have a bleeding duodenal ulcer. He has been fairly stable from that standpoint. Hemoglobin is relatively stable. His platelet count is also trending up. Mr. Pineda also presented with signs and symptoms of alcohol withdrawal, which seem to be stable. Unfortunately, since yesterday and this morning, he is showing signs of systemic inflammatory response syndrome, and his x-ray has confirmed upper lobe infiltrate concerning for pneumonia. He is being treated with intravenous antibiotics. Will get incentive spirometer. He is also an ex-smoker. We are getting bronchodilation therapy. Will follow up with his clinical picture, repeat labs, and imaging studies tomorrow, and give further recommendations. cc: Mario Johnson MD Critical time spent: 1 hour EMILY
[2019-08-09] MEDS ORDERED: VANCOMYCIN 2,300 MG in NS 500 ML IV ONE (14:00)
[2019-08-10] MEDS: VANCOMYCIN 1,700 MG in NS 250 ML IV SCH ×2 (03:03→14:31)
[2019-08-10] MEDS: ATIVAN IV PRN ×3 (03:03→21:50)
[2019-08-10] MEDS: TYLENOL PO PRN (03:06)
[2019-08-10] MEDS: DUONEB (A & A) INH SCH ×4 (03:42→23:17)
[2019-08-10 04:29] LABS: INR 1.24; PROTIME 15.8 Seconds (11.0-16.0)
[2019-08-10 04:30] LABS: PTT 33.7 Seconds (22.3-41.8)
[2019-08-10 07:53] LABS: BASO# 0.03 X1000 (0.0-0.2); BASO% 0.5 % (0.0-0.8); EOS# 0.12 X1000 (0.0-0.7); EOS% 1.9 % (0.0-10.0); HEMATOCRIT 29.8 % (42.0-52.0); HEMOGLOBIN 9.6 g/dL (14.0-18.0); IMM GRAN# 0.02 X1000 (0.0-0.04); IMM GRAN% 0.3 % (0.0-0.5); LYMPH# 1.31 X1000 (1.2-3.4); LYMPH% 21.3 % (20.5-51.1); MCH 29.4 PG (27-31); MCHC 32.2 g/dL (33-37); MCV 91.4 FL (81-99); MONO# 0.47 X1000 (0.11-0.59); MONO% 7.6 % (1.7-9.3); MPV 12.9 FL (7.4-10.4); NEUT# 4.21 X1000 (1.4-6.5); NEUT% 68.4 % (42.2-75.2); PLT 91 X1000 (130-400); RBC 3.26 XMIL (4.7-6.1); RDW 14.1 % (11.5-14.5); WBC 6.16 X1000 (4.8-10.8)
[2019-08-10] MEDS: FOLIC ACID PO SCH (08:21)
[2019-08-10] MEDS: KLOR-CON PO SCH (08:21)
[2019-08-10] MEDS: NEURONTIN PO SCH ×2 (08:21→21:51)
[2019-08-10] MEDS: PROTONIX IV SCH ×2 (08:21→21:53)
[2019-08-10] MEDS: NICODERM PATCH TD SCH (08:21)
[2019-08-10] MEDS: LIBRIUM PO SCH ×2 (08:21→21:51)
[2019-08-10] MEDS: THERA M PLUS PO SCH (08:21)
[2019-08-10] MEDS: VITAMIN B-1 PO SCH (08:22)
[2019-08-10 08:23] LABS: AGAP 10; ALB/GLOB RATIO 0.5; ALBUMIN 2.1 g/dL (3.5-5.0); ALKALINE PHOSPHATASE 64 U/L (32-122); BUN 7 mg/dL (8-22); CALCIUM 8.2 mg/dL (8.8-10.2); CHLORIDE 106 mmol/L (98-107); COSMO 273; CREATININE 0.5 mg/dL (0.7-1.2); ESTIMATED GFR > 60; GLUCOSE 94 mg/dL (70-104); GOT 72 U/L (10-34); GPT 33 U/L (10-44); MAGNESIUM 1.8 mg/dL (1.5-2.7); PHOSPHORUS 2.2 mg/dL (2.7-4.5); POTASSIUM 3.9 mmol/L (3.5-5.1); SODIUM 138 mmol/L (136-145); TCO2 22 mmol/L (25-35); TOTAL BILIRUBIN 0.79 mg/dL (0.20-1.00); TOTAL PROTEIN 6.2 g/dL (6.3-8.3)
[2019-08-10 08:35] LABS: BANDS 2 % (0-1); EOS 2 % (1-10); LYMPHS 14 % (21-51); MONO 4 % (1-9); SEGS 78 % (42-75)
[2019-08-10 08:36] LABS: HYPOCHROM 2+
--- NOTE | 2019-08-10 10:15 | PROGRESS NOTE ---
DATE: 08/10/2019 SUBJECTIVE: The patient reports feeling fine. He has been spiking fever and coughing. OBJECTIVE: Vital Signs: Temperature 97.8 degrees, heart rate 117, respiratory rate 20, blood pressure 137/86. O2 saturation 93% on 3 L nasal cannula. General: This is a is a chronically ill-appearing, 63-year-old male, lying in bed, in no acute distress. Cardiovascular: S1, S2 heard. No murmurs, gallops, or rubs. Regular rate and rhythm. Respiratory: Rhonchi and crackles noted in both pulmonary bases. Patient is not using any accessory muscles or having work of breathing. Abdomen: Soft. Nontender to palpation. Bowel sounds present. No organomegaly. No hepatosplenomegaly noted. Extremities: No clubbing, cyanosis, or edema. Peripheral pulses present in both legs. Neurological: Patient alert, oriented x3. Moves 4 extremities. LABORATORY DATA: White cell count 6.6, hemoglobin 9.6, hematocrit 29.8, platelets 91,000. BMP that is unremarkable except phosphorus that is 2.2. ASSESSMENT AND PLAN: 1. Anemia secondary to gastrointestinal bleeding. That was secondary to bleeding duodenal ulcer that was treated endoscopically. At this point, patient is on medical treatment with Protonix. At this point, I think we will add sucralfate to his current treatment. 2. Thrombocytopenia secondary to alcohol use and abuse. The platelets are getting better from 57 to 91, today we will continue to monitor. 3. Portal hypertensive, gastropathy noted on esophagogastroduodenoscopy, aware. We will continue to monitor. 4. Hospital-acquired pneumonia. Patient has been spiking fever and last time he did was yesterday at 4 p.m., 100.4. At this point, we will continue with current antibiotics, in this case vancomycin and cefepime. Blood culture has been done. We will continue to monitor. 5. Acute hypoxemic respiratory failure secondary to bilateral pneumonia. We will continue with oxygen supplementation and breathing treatments. DISPOSITION: At this point, we will continue to monitor this patient closely. We will continue with physical therapy and occupational therapy. cc: Matt Smith MD
[2019-08-10] MEDS ORDERED: SODIUM PHOSPHATE 35 MMOL in NS 250 ML IV ONE (10:30)
[2019-08-10] MEDS: MAXIPIME 2 GM/NS 2 GM/100 ML IVPB IV SCH ×3 (11:39→23:26)
[2019-08-10] MEDS: CARAFATE LIQUID PO SCH ×2 (14:29→21:51)
--- NOTE | 2019-08-10 14:47 | GASTROENTEROLOGY PROGRESS NOTE ---
DATE: 08/10/2019 SUBJECTIVE: Mr. Pineda is a 63-year-old, male who is resting in bed. The patient has denied any nausea, vomiting, or abdominal pain. He mentioned that he was able to tolerate his diet well. The patient has denied having any bowel movements today. OBJECTIVE: Vital Signs: Temperature 98.0 degrees, pulse 105, respirations 20, blood pressure 113/73, oxygen saturation 95% on 3 L nasal cannula. The patient's weight is 171 pounds. BMI is 24.6 kg/m2. General: He is alert, oriented x3, and in no acute distress. HEENT: Pale conjunctivae. No icterus. PERRL. Neck: Supple. Lungs: Clear to auscultation. Cardiovascular: Patient is tachycardic. Abdomen: Soft, nontender, nondistended. Active bowel sounds heard in all 4 quadrants. Extremities: No clubbing, no cyanosis, no edema. Pedal pulses 2+ present bilaterally. Neurologic: He is alert, oriented x3. Laboratory Data: WBCs are 6.16, RBCs 3.26, hemoglobin 9.6, hematocrit is 29.8, platelet count is 91,000. PT is 15.8, INR is 1.24. Sodium 138, potassium 3.9, chloride 106, carbon dioxide 22, anion gap is 10, BUN is 7, creatinine is 0.5, glucose is 94, calcium is 8.2, phosphorus 2.2, magnesium 1.8. Total bilirubin is 0.79, AST 72, ALT is 33, alkaline phosphatase is 64, albumin is 2.1. EGD ESOPHAGUS: Reflux esophagitis was found in the lower third of the esophagus. Esophagitis was LA Class C: Mucosal breaks continuous between > 2 mucosal folds, but involving less than 75% of the esophageal circumference. No esophageal varices. Z-line located at 40cm from incisors. STOMACH: Mild portal hypertensive gastropathy was found in the entire examined stomach. Mild gastritis (inflammation) was found in the gastric antrum. A biopsy was performed using cold forceps. Sample sent for histology. Multiple non-bleeding and clean-based ulcers ranging between 3-7mm in size were found in the gastric antrum. No gastric varices. DUODENUM: Moderate duodenal inflammation was found in the duodenal bulb and 2nd part duodenum. Multiple clean-based and and irregular shaped ulcers with adherent clots were found in the duodenal bulb and 2nd part duodenum. Clots were removed by suction. There was diffuse mild oozing of blood, but no discrete treatable lesions found. IMPRESSION: - UGIB - Duodenal ulcers - Acute blood anemia - LA grade C esophagitis - Gastritis - Duodenitis - Compensated ETOH cirrhosis - Thrombocytopenia - Hospital acquired pneumonia - Tobacco abuse - Alcohol abuse PLAN: Mr. Pineda is a 63-year-old, male with a history of COPD. GI is following him for his upper GI bleed. The patient's hemoglobin and hematocrit today are 9.6 and 29.8. The patient is currently on PPIs twice a day. He is receiving multivitamin, thiamine, and folic acid. The patient is also on antibiotics, Maxipime and vancomycin for his pneumonia. Currently, physical therapy and occupational therapy are working with the patient. We will continue to monitor the patient and follow the plan of care per PCP. This plan is discussed with Dr. Morris. Please call us for any further questions or concerns. Dictated by GAYATRI Deal for Dm Morris MD Physician Attestation I have seen and examined the patient. I have discussed and reviewed the note by Luh MENDIETA and agree with findings and plan as documented. In brief, Mr. Pineda is a 63 year old man with COPD, tobacco abuse, alcoholism, and compensated ETOH cirrhosis who presented with UGIB from duodenal ulcers found on EGD. Other findings noted above. Course complicated by hospital acquired pneumonia. Hgb stable. No overt bleeding. No abdominal pain, PSE, ascites, or edema. Transitioned PPI to PO BID. Stopped ativan. Continue thiamine, folate. Changed diet to cardia diet. Will follow with you. [facility]
[2019-08-11] MEDS: VANCOMYCIN 1,700 MG in NS 250 ML IV SCH (02:01)
[2019-08-11] MEDS: CARAFATE LIQUID PO SCH ×4 (02:09→21:43)
[2019-08-11] MEDS: TYLENOL PO PRN (02:09)
[2019-08-11] MEDS: ATIVAN IV PRN (02:09)
[2019-08-11] MEDS: DUONEB (A & A) INH SCH ×4 (03:58→21:53)
[2019-08-11 08:16] LABS: BASO# 0.02 X1000 (0.0-0.2); BASO% 0.4 % (0.0-0.8); EOS# 0.12 X1000 (0.0-0.7); EOS% 2.6 % (0.0-10.0); HEMATOCRIT 30.1 % (42.0-52.0); HEMOGLOBIN 9.7 g/dL (14.0-18.0); IMM GRAN# 0.03 X1000 (0.0-0.04); IMM GRAN% 0.6 % (0.0-0.5); LYMPH# 1.26 X1000 (1.2-3.4); LYMPH% 26.9 % (20.5-51.1); MCH 29.7 PG (27-31); MCHC 32.2 g/dL (33-37); MONO# 0.41 X1000 (0.11-0.59); MONO% 8.7 % (1.7-9.3); MPV 11.3 FL (7.4-10.4); NEUT# 2.85 X1000 (1.4-6.5); NEUT% 60.8 % (42.2-75.2); PLT 108 X1000 (130-400); RBC 3.27 XMIL (4.7-6.1); RDW 14.5 % (11.5-14.5); WBC 4.69 X1000 (4.8-10.8)
[2019-08-11] MEDS: PROTONIX IV SCH (08:16)
[2019-08-11] MEDS: NICODERM PATCH TD SCH (08:16)
[2019-08-11] MEDS: FOLIC ACID PO SCH (08:17)
[2019-08-11] MEDS: KLOR-CON PO SCH (08:17)
[2019-08-11] MEDS: VITAMIN B-1 PO SCH (08:17)
[2019-08-11] MEDS: THERA M PLUS PO SCH (08:17)
[2019-08-11] MEDS: NEURONTIN PO SCH ×2 (08:21→21:43)
[2019-08-11] MEDS: LIBRIUM PO SCH ×2 (08:21→21:43)
[2019-08-11 08:43] LABS: AGAP 10; ALBUMIN 2.2 g/dL (3.5-5.0); BUN 9 mg/dL (8-22); CALCIUM 7.7 mg/dL (8.8-10.2); CHLORIDE 107 mmol/L (98-107); COSMO 278; CREATININE 0.5 mg/dL (0.7-1.2); ESTIMATED GFR > 60; GLUCOSE 92 mg/dL (70-104); PHOSPHORUS 2.2 mg/dL (2.7-4.5); POTASSIUM 3.8 mmol/L (3.5-5.1); SODIUM 140 mmol/L (136-145); TCO2 23 mmol/L (25-35)
--- NOTE | 2019-08-11 09:47 | GASTROENTEROLOGY PROGRESS NOTE ---
DATE: 08/11/2019 SUBJECTIVE: Mr. Pineda is a 63-year-old male resting in bed. The patient mentioned that he was feeling better and he is looking forward to work with the Physical Therapy and do some exercise. He has denied any nausea, vomiting, or abdominal pain, and he was also able to tolerate his breakfast well. The patient has denied having any bowel movements today. OBJECTIVE: Vital Signs: Temperature 97.8 degrees, pulse 79, respirations 18, blood pressure 143/88, oxygen saturation 97% on 3 L nasal cannula. The patient's weight is 171 pounds. BMI is 22.6 kg/m2. General: He is alert, oriented x3 and in no acute distress. HEENT: Pale conjunctivae, no icterus. PERRL. Neck: Supple. Lungs: Mild crackles heard in the anterior bases. Cardiovascular: Regular rate and rhythm. Abdomen: Soft, nontender, nondistended. Active bowel sounds heard in all 4 quadrants. Extremities: No clubbing, no cyanosis, no edema. Pedal pulses 2+ present bilaterally. Neurologic: He is alert, oriented x3. LABORATORY: WBC is 4.69, RBC 3.27, hemoglobin is 9.7, hematocrit is 30.1, platelet count is 108,000. Sodium 140, potassium 3.8, chloride 107, carbon dioxide 23, anion gap 10, BUN 9, creatinine is 0.5, glucose 92, calcium 7.7, phosphorus 2.2, albumin is 2.2. IMPRESSION AND PLAN: 1. Duodenal ulcers. 2. Anemia 3. Thrombocytopenia. 4. Alcohol abuse. 5. Hospital-acquired pneumonia. PLAN: Mr. Pineda is a 63-year-old male with a history of COPD. Gastroenterology is following him for his upper GI bleed. The patient has denied noticing any further bleeding episodes. His hemoglobin and hematocrit is 9.7 and 30.4, which has been slightly trending upwards. We will continue patient with PPIs twice a day. The patient is also receiving multivitamin for his anemia. He is also receiving folic acid and thiamine. The patient is receiving Carafate 1 g every 6 hours. He is on antibiotic vancomycin and Maxipime for his pneumonia. We will continue to monitor the patient and follow the plan of care per PCP. This plan was discussed with Dr. Morris. Please call us for any further questions or concerns. Dictated by GAYATRI Deal for Dm Morris MD [facility]
--- NOTE | 2019-08-11 09:49 | PROGRESS NOTE ---
DATE: 08/11/2019 SUBJECT: The patient reports feeling fine, not spiking any more fever during the last 48 hours. He continues to have cough but is getting better though. OBJECTIVE: Vital Signs: Temperature 97.8 degrees, heart rate 79, respiratory rate 18, and blood pressure 143/88. O2 saturation 97% on 3 L nasal cannula. General: This is a chronically ill- appearing, 62-year-old, male lying in bed in no acute distress. Cardiovascular: S1, S2 heard. No murmurs, gallops, or rubs. Regular rate and rhythm. Respiratory: Rhonchi and some crackles noted in both pulmonary bases. Patient not using any accessory muscles or having work of breathing. Abdomen: Soft, nontender to palpation. Bowel sounds present. No organomegaly. No hepatosplenomegaly noted. Extremities: No clubbing, cyanosis, or edema. Peripheral pulses present in both legs. Neurological: Patient alert and oriented x3. Moves all 4 extremities. LABORATORY DATA: Hemoglobin 9.7, hematocrit 30.1, and platelets 108,000 with white cell count of 469. Normal BMP. ASSESSMENT AND PLAN: 1. Anemia secondary to GI bleeding, that was secondary to bleeding duodenal ulcer. That condition is stable. Hemoglobin is stable. We will continue to monitor. 2. Thrombocytopenia secondary to alcohol use and abuse. Platelet continues to recover. We will continue to monitor. 3. Portal hypertensive. Gastropathy noted on EGD. Will continue to monitor. 4. Hospital-acquired pneumonia. The patient is on vancomycin and cefepime. Will continue with those medications. The patient is breathing better although still requiring 3 L of oxygen by nasal cannula. 5. Acute hypoxemic respiratory failure secondary to bilateral pneumonia. We will continue with oxygen supplementation and breathing treatment. 6. Disposition. At this point, we will continue to monitor this patient in the hospital. Once we see that this patient is not requiring any oxygen supplementation, we will discharge this patient. cc: Matt Smith MD [facility]
[2019-08-11] MEDS: MAXIPIME 2 GM/NS 2 GM/100 ML IVPB IV SCH ×2 (11:06→23:48)
[2019-08-11] MEDS: VANCOMYCIN 2,000 MG in NS 500 ML IV SCH (15:01)
[2019-08-11] MEDS: PROTONIX PO SCH (21:43)
[2019-08-12] MEDS: VANCOMYCIN 2,000 MG in NS 500 ML IV SCH (04:24)
[2019-08-12] MEDS: PROTONIX PO SCH ×2 (04:25→10:33)
[2019-08-12] MEDS: CARAFATE LIQUID PO SCH ×2 (04:25→10:20)
[2019-08-12] MEDS: DUONEB (A & A) INH SCH ×2 (05:06→09:02)
[2019-08-12 07:22] VITALS: BP 148/84
[2019-08-12 07:59] LABS: BASO# 0.02 X1000 (0.0-0.2); BASO% 0.5 % (0.0-0.8); EOS# 0.07 X1000 (0.0-0.7); EOS% 1.7 % (0.0-10.0); HEMOGLOBIN 9.1 g/dL (14.0-18.0); IMM GRAN# 0.02 X1000 (0.0-0.04); IMM GRAN% 0.5 % (0.0-0.5); LYMPH# 1.18 X1000 (1.2-3.4); LYMPH% 27.8 % (20.5-51.1); MCH 30.1 PG (27-31); MCHC 32.5 g/dL (33-37); MCV 92.7 FL (81-99); MONO# 0.42 X1000 (0.11-0.59); MONO% 9.9 % (1.7-9.3); MPV 11.6 FL (7.4-10.4); NEUT# 2.53 X1000 (1.4-6.5); NEUT% 59.6 % (42.2-75.2); PLT 142 X1000 (130-400); RBC 3.02 XMIL (4.7-6.1); RDW 14.6 % (11.5-14.5); WBC 4.24 X1000 (4.8-10.8)
[2019-08-12 08:31] LABS: AGAP 8; ALBUMIN 2.3 g/dL (3.5-5.0); BUN 8 mg/dL (8-22); CALCIUM 7.9 mg/dL (8.8-10.2); CHLORIDE 109 mmol/L (98-107); COSMO 276; CREATININE 0.5 mg/dL (0.7-1.2); ESTIMATED GFR > 60; GLUCOSE 94 mg/dL (70-104); PHOSPHORUS 1.9 mg/dL (2.7-4.5); POTASSIUM 3.8 mmol/L (3.5-5.1); SODIUM 139 mmol/L (136-145); TCO2 22 mmol/L (25-35)
[2019-08-12] MEDS: NEURONTIN PO SCH (10:19)
[2019-08-12] MEDS: KLOR-CON PO SCH (10:19)
[2019-08-12] MEDS: THERA M PLUS PO SCH (10:19)
[2019-08-12] MEDS: LIBRIUM PO SCH (10:19)
[2019-08-12] MEDS: VITAMIN B-1 PO SCH (10:19)
[2019-08-12] MEDS: FOLIC ACID PO SCH (10:20)
[2019-08-12] MEDS: NICODERM PATCH TD SCH (10:20)
--- NOTE | 2019-08-12 11:06 | GASTROENTEROLOGY PROGRESS NOTE ---
DATE: 08/12/2019 SUBJECTIVE: Mr. Pineda is a 63-year-old male, excited that he was getting discharge today. The patient has denied any nausea, vomiting and abdominal pain. OBJECTIVE: Vital Signs: Temperature 98.2 degrees, pulse 89, respirations 18, blood pressure 148/84, oxygen saturation 99% on 3 L nasal cannula. The patient's weight is 171 pounds. BMI is 24.6 kg/m2. General: He is alert, oriented x3, in no acute distress. HEENT: Pale conjunctivae, no icterus. PERRL. Neck: Supple. Lungs: Mild wheezing heard in the anterior lobes. Cardiovascular: Regular rate and rhythm. Abdomen: Soft, nontender, nondistended. Active bowel sounds heard in all 4 quadrants. Extremities: No clubbing, no cyanosis, no edema. Pedal pulses 2+ present bilaterally. Neurologic: He is alert, oriented x3. LABS: WBCs are 4.24, RBC 3.02, hemoglobin is 9.1, hematocrit is 28.0, platelet count is 142. Sodium 139, potassium 3.8, chloride 109, carbon dioxide 22, anion gap is 8. BUN 8, creatinine is 0.5, glucose 94, calcium 7.9, phosphorus 1.9, albumin is 2.3. IMPRESSION AND PLAN: 1. Anemia. 2. Low platelets. 3. Alcohol abuse. 4. Duodenal ulcers. 5. Pneumonia. PLAN: Mr. Pineda is a 63-year-old male with a history of COPD. GI has been following him for his upper GI bleed. The patient has denied noticing any further bleeding episodes. His hemoglobin and hematocrit today is 9.1 and 28.0. The patient is currently on PPIs twice a day. He is receiving Carafate 1 g p.o. every 6 hours. He is also on a multivitamin with iron 1 tablet daily, thiamine 200 mg p.o. 1 tablet daily and folic acid 1 mg p.o. 1 tablet daily. The patient is getting discharged today. He will continue with his PPIs and multivitamins, and we have asked the patient to follow us up in 3 to 4 weeks as an outpatient, he may need a repeat EGD in 3 months due to his duodenal ulcers. We will follow him up as an outpatient. This plan was discussed with Dr. Hebert. Please call us for any further questions or concerns. Dictated by GAYATRI Deal for Frank Hebert MD cc: Frank Hebert MD I have seen and examined the patient myself and I agree with the above plan of care. Please call us with any further questions or concerns. MTDD
--- NOTE | 2019-08-12 12:07 | DISCHARGE SUMMARY ---
ADMISSION DATE: 08/05/2019 DISCHARGE DATE: 08/12/2019 ADMISSION DIAGNOSES: 1. Gastrointestinal bleed. 2. Hypokalemia. 3. Thrombocytopenia. 4. History of hypertension. 5. General anxiety disorder. 6. History of alcohol abuse. 7. Chronic obstructive pulmonary disease. 8. Tobacco dependency. 9. He was influenza A positive. DISCHARGE DIAGNOSES: 1. Anemia secondary to gastrointestinal bleeding that was secondary to a duodenal ulcer. 2. Thrombocytopenia secondary to alcohol use and abuse. 3. Portal hypertension. 4. Hospital-acquired pneumonia. 5. Acute hypoxemic respiratory failure secondary to bilateral pneumonia. 6. Significant peptic ulcer disease. CONSULTATIONS: Dr. Dm Morris. SURGERIES OR PROCEDURES: On 08/06/2019, Mr. Dank Pineda had an EGD performed by Dr. Dm Morris. There were no complications. There was reflux esophagitis, mild portal hypertension gastropathy, mild gastritis, multiple nonbleeding ulcers between 3 and 7 mm in size in the gastric antrum. No varices. Moderate duodenal inflammation in the duodenal bulb and second part of the duodenum. Multiple ulcers with adherent clots found in the duodenal bulb and the second part of the duodenum. There was oozing of blood of those but no treatable lesions found. It was recommended to keep him on Protonix twice a day IV, clear liquid diet, ceftriaxone for at least 5 days. No blood thinners or NSAIDs. Keep hemoglobin 7 to 8. Await biopsy results and repeat his EGD in 3 months. HOSPITAL COURSE: Mr. Dank Pineda is a 63-year-old, male with a medical history of hypertension, COPD, hemorrhoids, anxiety, insomnia, and alcohol abuse, who came in with complaints of gastrointestinal bleeding with black-colored stools that actually turned red in color. Apparently, he started taking excessive aspirin because Tylenol, he was told he could not take it because of his liver, for pain. He had nausea and vomiting so gastroenterology was consulted. He was kept NPO. Started on Protonix and Zofran for nausea. He never had to have any transfusions. His initial hemoglobin was 13.9. Today is the lowest that it has been, which is 9.1. On the , he went in for the EGD. Please see above report. He was kept on benzodiazepines. Bleeding resolved. Diet was advanced. Then he developed fevers on the . He had a chest x-ray which showed bilateral upper lobe infiltrates. He had already actually been on antibiotics. He had some physical deconditioning, needed physical therapy. His antibiotic regimen is vancomycin and cefepime, and oxygen and breathing treatments. DISCHARGE VITAL SIGNS: Temperature 98.2 degrees, heart rate 88, respiratory rate 19, blood pressure is 148/84, O2 saturation 97% on 3 L. LABORATORY DATA: White blood cells 4000, hemoglobin 9.1, hematocrit 28, platelet count 142,000. Sodium 139, potassium 3.8, BUN 8, creatinine 0.5, glucose 94, calcium 7.9, phosphorus 1.9, albumin 2.3. MICROBIOLOGY: He has positive influenza A. Stool positive for blood. Blood cultures were negative. Urine culture was negative. Another influenza on the was negative and blood cultures on the were negative. PERTINENT IMAGING: On 08/05/2019, chest x-ray, no pneumonia. On 08/05/2019, abdominal x-ray, nonspecific abdomen. On 08/06/2019, abdominal ultrasound, status post cholecystectomy. Normal caliber common bile duct at 4 mm and the pancreas is largely obscured by artifacts. Apparent fatty infiltration of liver. No evidence of focal liver lesion and unclear flow direction in the portal vein. No evidence of ascites. On 08/09/2019, chest x-ray shows bilateral upper lobe infiltrates consistent with pneumonia. Pathology on 08/06/2019 from the gastric biopsy, chronic inactive gastritis and H. pylori negative. DISCHARGE MEDICATIONS: 1. Minipress 4 mg p.o. nightly. 2. Atenolol 50 mg p.o. daily. 3. Clonazepam p.o. 0.5 mg in the morning and 1 mg at night. 4. Lisinopril 10 mg p.o. daily. 5. Remeron 30 mg p.o. daily. 6. Carafate 1 g p.o. every 6 hours. 7. Albuterol, Atrovent, Combivent every 4-6 hours p.r.n. 8. Folic acid 1 mg p.o. daily. 9. Levaquin 750 mg p.o. daily for 10 days 10. Protonix 40 mg p.o. twice daily. 11. Multivitamin 1 tablet p.o. daily. 12. Vitamin B1, thiamine 100 mg p.o. daily. PHYSICIAN FOLLOWUP: Dr. Somers. DISCHARGE ACTIVITY: As tolerated. Take care to prevent falls. DISCHARGE DIET: Heart healthy. DISCHARGE INSTRUCTIONS: If your condition changes, contact physician and/or return to the emergency department. Changes may include, but are not limited to shortness of breath, increased fatigue, excessive bleeding, unexplained weight loss or gain, unmanageable pain, signs or symptoms of infection. DISCHARGE DISPOSITION: Home. Dictated by GAYATRI Alexandra for Matt Smith MD Addendum: Patient seen and examined by myself. Agree with GAYATRI note. It reflects my assessment and plan. Patient is being discharged in stable condition. Will be seen by PCP in a week. cc: GAYATRI Alexandra MD [facility]
== END 2019-08-12 11:40 | disposition home health service (06) | DRG 377 ==
LOC: SUPCPDRO → ED 07:59 → SUATTDRO 13:10 → EDIPHOLD 13:10 → 3N 16:08
PROVIDERS: ATTEND Internal Medicine